=== PATIENT | male | born 1970 | race Caucasian/White ===

== ENCOUNTER 2017-09-11 06:23 | Inpatient (IN) ==
--- OUTSIDE RECORDS SUMMARY | 2017-09-11 06:27 | External Medical Summary | Continuity of Care Document ---
:1970 Author Organization [facility] Allergies Medications Problems Date Dx Coded Attending Type Code Diagnosis Diagnosed By 04/26/2016 HOMERO SCHUSTER Ot M79.661 PAIN IN RIGHT LOWER LEG 04/30/2016 SWEAT BOB, HOMERO L Ot M79.661 PAIN IN RIGHT LOWER LEG 10/12/2016 SWEAT PA, HOMERO L Ot M79.661 PAIN IN RIGHT LOWER LEG 10/30/2016 SWEAT BOB, HOMERO L Ot M79.661 PAIN IN RIGHT LOWER LEG Procedures Results Encounters ACCT Visit Discharge Status Pt. Type Provider Facility Loc./Unit Complaint No. Date/Time [id number] 04/24/2016 04/24/2016 CLS Outpatient Gregg SCHUSTER RAD RIGHT CALF [id number] 10:46:00 23:59:59 [facility] PAIN
[2017-09-11] MEDS ORDERED: SALINE FLUSH 10ml SYRINGE IV PRN ×2 (09:56→19:31)
[2017-09-11 11:43] VITALS: BMI 36.8
[2017-09-11] MEDS ORDERED: MIDAZOLAM 2mg/2ml INJECTION ONE ×2 (12:55→13:32)
[2017-09-11] MEDS ORDERED: Verapamil 5 MG/2 ML VIAL ONE (12:57)
[2017-09-11] MEDS ORDERED: NITROGLYCERIN 50MG INJECTION IV ONE (12:57)
[2017-09-11] MEDS ORDERED: HEPARIN 1,000unit/ml INJECTION 10ml ONE (12:57)
[2017-09-11] MEDS ORDERED: FentaNYL 100 MCG/2 ML INJECTION ONE (12:57)
[2017-09-11] MEDS ORDERED: LIDOCAINE 1% (10mg/ml) 30ml SDV INJ ONE (12:58)
[2017-09-11] MEDS ORDERED: HEPARIN 1,000 UNITS/500 ML PREMIX (*CVL ONLY*) IV ONE (13:00)
[2017-09-11] MEDS ORDERED: 1/2 NS 1,000 ML IV SCH (14:00)
[2017-09-11] MEDS ORDERED: CLOPIDOGREL 75 MG TABLET ONE (14:09)
[2017-09-11] MEDS ORDERED: HEPARIN DRIP 20,000 UNIT/500 ML BAG IV ONE (14:15)
[2017-09-11] MEDS ORDERED: NS 1,000 ML IV SCH ×2 (14:40→19:45)
[2017-09-11] MEDS: HEPARIN DRIP 20,000 UNIT/500 ML BAG IV SCH ×2 (14:40→19:17)
[2017-09-11] MEDS ORDERED: NITROGLYCERIN 0.4 MG SUBLINGUAL TABLET SL PRN ×3 (15:57→19:53)
[2017-09-11] MEDS ORDERED: NITROGLYCERIN 2% OINTMENT 1gm PACKET TP PRN (15:58)
[2017-09-11] MEDS ORDERED: MAG-AL + SIM ORAL LIQUID 30ml PO PRN (16:00)
[2017-09-11] MEDS ORDERED: ACETAMINOPHEN 325 MG TABLET PO PRN (16:05)
[2017-09-11] MEDS ORDERED: HEPARIN - PHARMACY CONSULT MC ONE (19:41)
[2017-09-11] MEDS ORDERED: ASPIRIN 325 MG TABLET PO ONE (19:41)
[2017-09-11] MEDS ORDERED: ONDANSETRON 4 MG/2 ML INJECTION IVP PRN (19:41)
[2017-09-11] MEDS ORDERED: ACETAMINOPHEN 500 MG TABLET PO PRN (19:53)
--- NOTE | 2017-09-11 20:50 | Cardiology History & Physical ---
History of Present Illness HPI: Mr. Valentin is a pleasant 47-year-old male well-known to me. He has history of small vessel coronary artery disease involving diagonal branch dates back to 2006 when he had a heart catheter. He was seen recently in my office twice for severe hypertension. Also had a severe left-sided chest pain started after moving a large refrigerator. Started having severe hypertension as high as 220/110 with some mild headaches. His been very anxious. He is having chest pain daily. Saw him in the office this past EKG showed no acute changes (troponin last wk was normal ) , he was severely hypertensive and having intermittent left-sided chest pain and pressure but pain-free in the office. Did not want him to drive so I drove across a street from my office to the emergency department for treatment of hypertension and work up of his chest pain. I recommended him to be admitted to the hospital and, communicated that with emergency department physician. He refused admission. Apparently he went back to the emergency department the same evening with a having more chest pain and getting scared but then left the hospital ED waiting room on his own before ,being seen by a physician. Severe Chest Pain on Saturday Evening for a couple of hours. He has had some mild chest pain on Saturday morning but none since. His chest pain has been improving with Rest and up to x2 Sublingual Nitroglycerin and Worsened with Walking short distance/any activity . He also had reproducible left sided chest wall tenderness to light touch and arm movement. He has risk factors including hypertension smoking history known atherosclerotic cardiovascular disease with a previous renal artery stent and small vessel CAD. For additional details please refer to the office note and emergency department physician reports. Patient has been treated with amlodipine and labetalol aspirin and sublingual nitroglycerin glycerin when necessary was also given Xanax when necessary which has helped him sleep. He was also noted to have acute kidney injury with a creatinine 1.9 last week seen by nephrology Dr. Maxwell repeat creatinine was down to normal. He ordered a renal artery Doppler and bilateral kidney ultrasound. He cleared him for possible heart catheter now that his creatinine is down. Patient presents for outpatient transradial heart catheterization coronary angiogram and renal arteriogram on 09/11/2017. It showed significant coronary artery disease with a thrombus in the LCx. No angina today or yesterday .EKG without acute changes. Decided to admit him for hydration ,and to load him with Plavix and start intravenous heparin overnight to reduce thrombus burden to allow for safer percutaneous coronary intervention. This should also help us to better protect his kidneys, especially given his recent XAVIER . That is by splitting the contrast load and allowing good IV hydration. Again he is a free from active angina at the time of my heart catheterization. Expected length of stay is greater than 2 nights to inpatient status was requested. Review of Systems All systems PM: 10-point ROS was reviewed, no additional remarkable complaints except - Constitutional Constitutional: Present: fatigue, headache(s) (mild), weakness (generalized). Absent: anorexia, chills, fever(s), night sweats - EENMT Eyes: Absent: diplopia, loss of vision Mouth/Throat: Absent: sore throat - Cardiovascular Cardiovascular: Present: chest pain. Absent: palpitations, syncope, dyspnea on exertion, edema Vascular: Absent: Raynaud's - Respiratory Respiratory: Absent: cough, dyspnea, chest congestion - Gastrointestinal Gastrointestinal: Present: nausea (mild after meals), other (mild heartburn that resolved after Maalox and Tylenol. No associated chest tightness or pressure or dyspnea). Absent: abdominal pain, change in bowel habits, coffee ground emesis, hematemesis, hematochezia, melena - Genitourinary Genitourinary: Absent: dysuria, hematuria - Musculoskeletal Musculoskeletal: Present: as per HPI, neck pain, stiffness - Neurological Neurological: Present: as per HPI, headache(s). Absent: abnormal speech, confusion, dizziness, frequent falls, loss of vision, memory loss - Psychiatric Psychiatric: Present: anxiety - Endocrine Endocrine: Present: flushing (after taking amlodipine twice a day, improved after dose was lowered to 5 mg daily) - Hematologic/Lymphatic Hematologic/Lymphatic: Absent: easy bleeding, easy bruising [facility] Patient Stated Medical History Cerebrovascular Accident Yes: only right side facial droop Dental Problems Yes: broken and missing teeth Angina Yes Coronary Artery Disease Yes Hypertension Yes Myocardial Infarction Yes Other Cardiology Yes: pacemaker 2006 Gastroesophageal Reflux Yes Disease Gastrointestinal Bleeding Yes: bright red blood in stool intermittently Ulcer Yes Hx Renal Disease Yes: CKD STAGE 3 Other Yes: stent in right kidney Other Infectious Yes: staph Surgical History: Permanent pacemaker implantation 2006. coronary angiogram about 2006 done at [place] that showed small vessel disease involving diagonal branch normal LV function. Appendectomy cholecystectomy left knee arthroplasty 3 Family History Updates: Positive for heart disease and stroke - Social History Smoking status: Current every day smoker Substance use type: does not use Alcohol intake frequency: does not drink Household members: spouse Current occupational status: employed Current residence: Apartment/Private Home Medications Home Medications Medication Instructions Recorded Confirmed Type Labetalol HCl 200 mg PO BID #0 09/15/10 09/11/17 History Acetaminophen [Acetaminophen Extra 1,000 mg PO Q6H PRN 09/05/17 09/11/17 History Strength] Multivitamin [Multivitamins] 1 cap PO DAILY 09/05/17 09/10/17 History Aspirin [Aspirin EC] 81 mg PO HS 09/10/17 09/11/17 History ALPRAZolam [Xanax] 1 - 2 tab PO Q6H 09/11/17 09/11/17 History Nitroglycerin [Nitrostat] 0.4 mg SL [id number] PRN 09/11/17 09/11/17 History Allergies Allergy/AdvReac Type Severity Reaction Status Date / Time lisinopril Allergy Severe ANAPHYLACTIC Verified 09/11/17 11:59 SHOCK Exam Vital signs: Temperature 97.7 F 09/11/17 11:35 Pulse Rate 58 L 09/11/17 18:29 Respiratory Rate 16 09/11/17 11:35 Blood Pressure 141/86 H 09/11/17 11:35 Pulse Oximetry 97 09/11/17 11:35 - Constitutional no acute distress, well developed, obese - Routine HEENT Exam Head: Present: normocephalic, atraumatic Eye: Present: EOMI, PERRL ENT: Present: mucous membranes moist - Routine Neck Exam Present: normal carotid upstroke. Absent: JVD, carotid bruit - Routine Respiratory Exam Present: CTA bilaterally - Routine Cardiovascular Exam Present: RRR, no murmur, S4. Absent: JVD - Routine Abdominal Exam Present: soft, normoactive bowel sounds, non distended, non tender. Absent: organomegaly, mass - Routine Extremities Exam Absent: cyanosis, clubbing, edema - Routine Skin Exam Present: intact, dry, warm. Absent: cyanosis, erythema, pallor - Routine Neurological Exam Present: alert, oriented X3, CN II-XII intact, moving all extremities, vision grossly intact, normal speech. Absent: sensory deficit, motor deficit, facial asymmetry - Routine Psychiatric Exam Present: normal thought process, cooperative, anxious Results 09/12/17 06:32 09/12/17 06:32 Cardiac Enzymes 09/11/17 Range/Units 12:26 AST 19 (17-59) U/L Lipids 09/11/17 Range/Units 12:26 Triglycerides 106 (40-160) MG/DL Cholesterol 131 L (132-199) MG/DL HDL Cholesterol 23 L (40-60) MG/DL Cholesterol/HDL Ratio 5.7 H (0-5.0) RATIO CBC 09/11/17 Range/Units 12:26 WBC 10.3 (4.5-11.0) T/MM3 RBC 6.37 H (4.50-5.90) M/MM3 Hgb 17.5 (13.5-17.5) GM/DL Hct 52.1 (41-53) % Plt Count 206 (130-400) T/MM3 Neut # (Auto) 6.6 (1.8-7.7) T/MM3 Lymph # (Auto) 2.5 (1-4.8) T/MM3 Cecil # (Auto) 0.8 (0-0.8) T/MM3 Eos # (Auto) 0.3 (0-0.5) T/MM3 Baso # (Auto) 0.0 (0-0.2) T/MM3 Comprehensive Metabolic Panel 09/11/17 Range/Units 12:26 Sodium 143 (134-144) MEQ/L Potassium 4.1 (3.6-5) MEQ/L Chloride 106 (98-107) MEQ/L Carbon Dioxide 27 (22-30) MEQ/L BUN 21.0 H (9-20) MG/DL Creatinine 1.1 (0.8-1.5) MG/DL Glucose 92 (75-110) MG/DL Calcium 9.2 (8.4-10.2) MG/DL AST 19 (17-59) U/L ALT 45 (21-72) U/L Alkaline Phosphatase 94 (38-126) U/L Total Protein 7.8 (6.3-8.2) G/DL Albumin 4.4 (3.5-5.0) G/DL Intake and Output 09/11/17 09/11/17 09/11/17 06:59 14:59 22:59 Intake Total 961.666 / 961.666 Balance 961.666 / 961.666 Intake: IV 541.666 / 541.666 Heparin Drip 20,000 unit 108.333 / 108.333 In 500 ml @ 1,000 UNIT/HR 25 mls/hr IV .Q20H MALLORY Rx#:[id number] Ns 1,000 ml @ 100 mls/hr 433.333 / 433.333 IV .Q10H MALLORY Rx#: [id number] Oral 420 / 420 Other: Urine Appearance Clear Urine Color Yellow Urine Odor Strong # Voids 1 Weight 113 kg Patient Weight All labs from 09/11/2017 at the time of service reviewed - EKG Interpretation EKG: sinus rhythm, no acute changes Hospital Course This is a general summary of the patient's hospital course. For more details refer to the complete medical record. Time spent with patient: greater than 35 minutes DVT Prophylaxis: Heparin drip GI Prophylaxis: Protonix Assessment and Plan - Assessment and Plan (1) Acute coronary syndrome Status: Acute Three-vessel coronary artery disease with good LV function nondiabetic and 47- year-old . No angina in the past 48 hours . Had refused admission to the hospital for chest pain and hypertension on 3 occasions . Now he is agreeable to stay after the heart catheterization findings and the treatment plan discussed with him and his . Going for multivessel coronary stenting probably staged rather than a CABG especially given his age and the absence of severe disease in the left main and LAD itself, absence of diabetes, and the presence of preserved LV function. Reviewed with Dr. Nadia Dueñas jewel blocker and sawyer. I Decided to admit him for hydration ,and to load him with Plavix and start intravenous heparin overnight to reduce thrombus burden to allow for safer percutaneous coronary intervention. This should also help us to better protect his kidneys, especially given his recent XAVIER . That is by splitting the contrast load and allowing good IV hydration. Restart his usual home meds including beta blockers No ANDREINA inhibitor or ARB due to history of anaphylaxis with a former drug. Start intense statin therapy due to coronary artery disease Check fasting lipid profile and troponin level 1 Obtain an echocardiogram for accurate assessment of LV function and wall motion . Proton pump inhibitor due to heartburn and anticoagulant/and dual antiplatelet therapy started. Expected length of stay is greater than 2 nights to inpatient status was requested. (2) Dyslipidemia (high LDL; low HDL) Status: Acute (3) Essential hypertension Status: Chronic (4) Renal artery stenosis, [id number] Status: Chronic (5) 3-vessel coronary artery disease Problem details: With Good LV function Status: Acute - Assessment and Plan severe 3 V CAD with preserved LV Fx had severe CP came back to ED then he decided to leave. has refused admission from my office and ED ,also Dr Dawkins's notes had a lot of CP Saturday evening and mild CP on saturday none since . EKG w/o acute STT changes or diagnostic Q waves recheck troponin pending. d/t amount of contrast exposure, recent XAVIER and coronary thrombus, and given the abscence of angina today decided to admit inpatient to CCU Rx with IV Heparin and load with PO Plavix. start high intensity statin restart home meds including BB. echocardiogram troponin PCI in am after over night infusion of Heparin and PO Plavix and Statin on board to reduce clot burden and thus lower PCI complication rate. also advised on limited photo lab manager hours here and potential need fro an emergent transfer to [place] , for a 24/7 photo lab manager facility , should his clinical picture changes, and they're in agreement to stay here for PCI planned in am by Dr Taylor. images and acse reviwed and discussed with him for interventional opinion and he recommended multivessel PCI, rather than CABG in this young patient . discussed with pt and and they're in agreement.
[2017-09-11] MEDS ORDERED: ASPIRIN *EC* 81 MG TABLET PO SCH (21:00)
--- NOTE | 2017-09-11 21:28 | Cardiology Progress Note ---
Exam Vital signs: Temperature 97.4 F 09/11/17 20:01 Pulse Rate 56 L 09/11/17 21:00 Respiratory Rate 19 09/11/17 21:00 Blood Pressure 136/69 09/11/17 20:01 Pulse Oximetry 98 09/11/17 21:00 Hospital Course Summary Disclaimer: The visit summary below is not to be considered part of the above Progress Note. Hospital Course: 09/11/17 21:26 procedure report transradial HC severe 3 V CAD good LV Fx no complications d/t occluded LCX will obtain troponin level no CP since Saturday
[2017-09-11] MEDS: ATORVASTATIN 40 MG TABLET PO SCH (22:19)
[2017-09-11] MEDS: AMLODIPINE 5 MG TABLET PO SCH (22:19)
[2017-09-11] MEDS: ALPRAZolam 0.25 MG TABLET PO SCH (22:20)
[2017-09-12] MEDS ORDERED: HEPARIN DRIP 20,000 UNIT/500 ML BAG IV SCH (00:43)
[2017-09-12] MEDS: ALPRAZolam 0.25 MG TABLET PO SCH ×4 (03:50→20:01)
[2017-09-12] MEDS ORDERED: OMEPRAZOLE 20 MG CAPSULE PO SCH (06:30)
[2017-09-12] MEDS: PANTOPRAZOLE 40 MG TABLET PO SCH (06:53)
[2017-09-12] MEDS: LABETALOL 100 MG TABLET PO SCH ×3 (07:26→21:38)
--- NOTE | 2017-09-12 08:00 | Pharmacy Consult ---
Pharmacy Consult-Heparin - Laboratory Information Heparin Plt Count 186 T/MM3 (130-400) 09/12/17 06:32 APTT 62.0 SEC (24-36) H 09/12/17 06:32 - Consult Information HEPARIN CONSULT (Initial): Dx: Chest pain Baseline PTT = 44 Sec. Baseline platelet count = 206 T/mm3. PTT Target Range = 50-75 Will give no Heparin Bolus. Start Heparin Drip at 1,200 units/hr (30ml/hr). Heparin 20,000 units in D5W 500ml. PTT after 7 hours is 62 seconds so we will continue same rate of 30mL/hr. We will order PTT around 1400 today. This a.m. platelet count is 186,000 We will continue to monitor and make adjustments accordingly. Thank you.
[2017-09-12] MEDS: AMLODIPINE 5 MG TABLET PO SCH ×2 (08:11→21:38)
[2017-09-12] MEDS: MULTIVITAMIN PO SCH (08:11)
[2017-09-12] MEDS: CLOPIDOGREL 75 MG TABLET PO SCH (08:12)
[2017-09-12] MEDS ORDERED: HEPARIN 1,000unit/ml INJECTION 10ml ONE (08:24)
[2017-09-12] MEDS ORDERED: LIDOCAINE 1% (10mg/ml) 30ml SDV INJ ONE (08:25)
[2017-09-12] MEDS ORDERED: HEPARIN 1,000 UNITS/500 ML PREMIX (*CVL ONLY*) IV ONE (08:25)
[2017-09-12] MEDS ORDERED: IOHEXOL 350mg/ml 200ml BOTTLE ONE ×2 (08:25→10:51)
[2017-09-12] MEDS ORDERED: ASPIRIN *EC* 81 MG TABLET PO SCH (09:00)
[2017-09-12] MEDS ORDERED: FentaNYL 100 MCG/2 ML INJECTION ONE ×2 (09:32→10:54)
[2017-09-12] MEDS ORDERED: MIDAZOLAM 2mg/2ml INJECTION ONE (09:32)
[2017-09-12] MEDS ORDERED: NITROGLYCERIN 50MG INJECTION IV ONE (09:37)
[2017-09-12] MEDS ORDERED: NS 1,000 ML ONE (10:47)
[2017-09-12] MEDS ORDERED: NS 1,000 ML IV SCH (11:00)
--- NOTE | 2017-09-12 12:11 | Cardiology Report ---
DATE OF PROCEDURE 09/12/2017 REFERRING PHYSICIAN Carlos Dueñas MD PROCEDURE PERFORMED 1. PTCA and stent placement of the proximal and mid circumflex artery. 2. Primary stenting of the first diagonal branch of the LAD. MEDICATIONS GIVEN DURING PROCEDURE Please refer to printout sheet. Conscious sedation for 30 minutes. COMPLICATIONS None DESCRIPTION OF OPERATION The patient was brought to the cardiac catheterization laboratory. Right groin was prepped and draped in usual sterile technique. 1% Xylocaine was used for local anesthesia. A 6-Eritrean inserted in the right femoral artery. A 6-Eritrean JLC guide was inserted in the left main coronary artery. A Runthrough wire was advanced to the circumflex artery. Predilation was performed using 2.5 x 15 mm balloon. Subsequently a 2.75 x 30 mm drug-eluting stent ([place] [place]) was deployed in the proximal and mid circumflex artery and inflated up to 12 atmospheres (up to 2.795 mm). Additional views were obtained and subsequently the wire was advanced to the first diagonal branch of the LAD and 2.5 x 18 mm drug-eluting [place] stent was placed, up to 14 atmospheres (2.8 mm). Subsequently there was thought to be a significant disease in the mid LAD and therefore a wire was advanced to the LAD. However, upon further angiography, the lesion appeared to be less than 50%, therefore no revascularization was thought to be necessary and the wire was taken out. Angiography was performed and Angio-Seal was applied with successful result. RESULTS 1. PTCA and stent placement of the mid circumflex artery was successfully reduced from 99% down to 0% with RASHAWN-2 flow at the beginning and RASHAWN-3 flow at the end. There was some moderate diffuse disease throughout the whole area and that is why a long stent was used. 2. Primary stenting of the first diagonal branch of LAD was successfully reduced from about 80% down to 0%, with RASHAWN-3 flow before and after the procedure. 3. The length of the lesion in the circumflex was approximately 33 mm in length. The lesion of the diagonal was approximately 14 mm. COMMENT After re-wiring the LAD with the wire, the lesion appeared to be much less in the mid LAD which raises the question of intramyocardial bridging. [facility]
[2017-09-12] MEDS ORDERED: MORPHINE SULFATE 4mg INJECTION IVP PRN ×2 (13:18→13:19)
[2017-09-12] MEDS ORDERED: HYDROCODONE/APAP 5mg/325mg TABLET PO PRN (13:21)
[2017-09-12] MEDS ORDERED: PROMETHAZINE 25 MG INJECTION IVP PRN (13:21)
[2017-09-12] MEDS ORDERED: LORazepam 0.5 MG TABLET PO PRN (13:22)
[2017-09-12] MEDS ORDERED: ONDANSETRON 4 MG/2 ML INJECTION IVP PRN (13:23)
[2017-09-12] MEDS ORDERED: METOCLOPRAMIDE 10mg/2ml INJECTION IVP PRN (13:25)
--- NOTE | 2017-09-12 18:57 | Cardiology Progress Note ---
Subjective Interval history: Curt is doing well. He denies any further chest pain .no significant wrist or groin pain. He is seen post PCI to LCx and diagonal branch. He ate lunch no BM yet, normal urine. Appears comfortable , lying in bed at bedside. He did get up to use the bathroom earlier without problems. Telemetry shows sinus rhythm labs are stable Elected for intense lipid-lowering treatment Exam Vital signs: Temperature 97.7 F 09/12/17 15:59 Pulse Rate 56 L 09/12/17 15:00 Respiratory Rate 17 09/12/17 15:00 Blood Pressure 117/73 09/12/17 14:00 Pulse Oximetry 97 09/12/17 15:00 - Constitutional no acute distress - Routine HEENT Exam Head: Present: normocephalic, atraumatic Eye: Present: EOMI ENT: Present: mucous membranes moist - Routine Neck Exam Absent: JVD - Routine Respiratory Exam Present: CTA bilaterally - Routine Cardiovascular Exam Present: RRR Comments: Peripheral pulses are intact including the right radial and right pedal. Digits were pink normal neurovascular exam - Routine Abdominal Exam Present: soft, normoactive bowel sounds - Routine Extremities Exam Absent: cyanosis, clubbing, edema - Routine Skin Exam Present: intact, normal turgor, wounds (normal right wrist and right groin catheter sites without hematoma swelling or bruise no discharge). Absent: cyanosis, erythema, ecchymosis - Routine Neurological Exam Present: alert, oriented X3, CN II-XII intact, moving all extremities, vision grossly intact, hearing grossly intact, normal speech. Absent: sensory deficit , motor deficit, facial asymmetry - Routine Psychiatric Exam Present: normal affect, normal thought process, cooperative Assessment and Plan - Assessment and Plan (1) Non-ST elevation FL (NSTEMI) Current visit: Yes Status: Acute No angina on or since admission. Has been having angina as an outpatient and refused hospital admission. Patient is doing very well status post PCI multivessel, to LCx and diagonal branch. Normal LV function. Wall motion mitral and echo cardiogram due to stunned myocardium Minimal troponin elevation. EKG without acute changes. Counseled in smoking cessation. He says he quit. No side effects from the medications. He is on a good regimen. Appears to be in good spirits. We'll ambulate observe him overnight and hopefully home tomorrow. (2) Essential hypertension Current visit: Yes Status: Acute (3) Dyslipidemia (high LDL; low HDL) Current visit: Yes Status: Acute (4) Renal artery stenosis, [id number] Current visit: Yes Status: Acute Left renal artery stent with only about 30% stenosis and good flow Right renal artery 50% stenosis nonobstructive see report Renal arterial Doppler also reviewed from 2 days ago ordered by Dr. Maxwell [facility] Hospital Course Summary Disclaimer: The visit summary below is not to be considered part of the above Progress Note.
[2017-09-12] MEDS: ATORVASTATIN 40 MG TABLET PO SCH (21:38)
[2017-09-13] MEDS: ALPRAZolam 0.25 MG TABLET PO SCH ×3 (05:21→16:18)
[2017-09-13] MEDS: PANTOPRAZOLE 40 MG TABLET PO SCH (06:34)
[2017-09-13] MEDS ORDERED: ASPIRIN *EC* 81 MG TABLET PO SCH (09:00)
[2017-09-13] MEDS ORDERED: CLOPIDOGREL 75 MG TABLET PO SCH (09:00)
[2017-09-13] MEDS ORDERED: ASPIRIN *EC* 325 MG TABLET PO SCH (09:00)
--- NOTE | 2017-09-13 09:19 | Echocardiogram ---
DATE OF SERVICE 09/12/2017 INDICATION Acute MS. TECHNICAL QUALITY Technically good 2-D, M-mode, Doppler echocardiographic images were submitted for interpretation. FINDINGS 1. CARDIAC CHAMBERS. All cardiac chamber measurements are normal. Aortic root diameter is normal. RV size and contractility appear normal. 2. LEFT VENTRICLE. Analysis reveals wall thickness is normal, measured 8.6 mm in the septal wall, 9.4 mm in the posterior wall. Wall motion analysis shows posterior and lateral wall hypokinesis. LV systolic function appears good. 3. VALVES. Aortic and mitral valve exhibit very minimal sclerosis. Tricuspid valve structure and motion appear normal. Normal valve excursion. Other valves appear to have normal opening. Pacemaker leads are seen in the right heart, appear to be unremarkable. 4. Trace mitral regurgitation. Trace tricuspid regurgitation. Normal flow velocities throughout were measured. 5. No evidence of pericardial effusion, intracardiac masses, thrombi, vegetations or shunts. 5. Central venous pressure is estimated to be low based on full loss of IVC. IMPRESSION 1. Normal cardiac chamber size. 2. Normal LV systolic function, EF of 55-60%. 3. Posterior wall hypokinesis that may represent a stunned myocardium. 4. No significant valvular dysfunction. 5. Preserved diastolic function parameters. 6. Pacemaker leads are seen in the right heart. [facility]
[2017-09-13] MEDS: AMLODIPINE 5 MG TABLET PO SCH (09:23)
[2017-09-13] MEDS: CLOPIDOGREL 75 MG TABLET PO SCH (09:24)
[2017-09-13] MEDS: LABETALOL 100 MG TABLET PO SCH (09:24)
[2017-09-13] MEDS: MULTIVITAMIN PO SCH (09:26)
--- NOTE | 2017-09-13 10:26 | Cardiac Catheterization Report ---
DATE 09/11/2017 PROCEDURES PERFORMED Transradial left heart catheterization. LV gram. Coronary angiogram. Abdominal aortogram.. Bilateral renal arteriogram. Moderate conscious sedation - estimated time 40 minutes. INDICATION A 47-year-old gentleman with acute coronary syndrome. He also had severe intermittent hypertension. He has a personal history of left renal artery stent. The patient has been having chest pain for about 10 days and he has refused hospital admission for chest pain and hypertension. He was counseled on the indication, alternatives, risks and benefits of heart catheterization. He agreed to proceed. NARRATIVE OF PROCEDURE After informed consent was obtained, the patient was brought to the cardiac cath laboratory free from chest pain. He was premedicated with IV Versed and fentanyl. Please refer to nursing notes for exact amount given. Blood pressure , oximetry and telemetry were closely monitored throughout the case. Lidocaine 1% about 2 cc was administered in the right wrist. Accessed the right radial artery using modified Seldinger percutaneous technique. A 5-Icelandic slender sheath was introduced in place. Advanced a Manoj catheter under fluoroscopy guidance and performed the above-mentioned procedures. Catheter then was pulled out and advanced down the descending thoracic aorta. Abdominal aortogram was performed to look at the ostia of the renal arteries. Then, for good visualization, selective bilateral renal arteriogram was performed. Procedure was well tolerated. There was no immediate complication. The patient remained asymptomatic throughout the procedure except for some right wrist pain at the site of the entry. The hand and the digits all appeared good , pink and warm. The patient is currently angina free at the time of the procedure and decision was to hydrate him overnight, load him up with Plavix, maintain him on IV heparin, proceed with TR Band for hemostasis (deployed successfully) and bring him back for transfemoral percutaneous intervention, multivessel, in consultation with Dr. Nadia Dueñas. FINDINGS 1. HEMODYNAMICS: LVEDP was 4-5 mmHg. There was no transvalvular or subvalvular pressure gradient present. 2. LV gram shows preservice LV systolic function. Accurate wall motion analysis was limited due to amount of contrast injected. Right coronary artery is a large dominant vessel, exhibits a proximal 75% stenosis manifested as a shelf-like lesion. RPDA and RPLB branches (the latter being march larger in caliber) appear free from occlusive disease. Left main coronary artery is large and normal. LAD is a large vessel, gives origin to two diagonal branches. LAD exhibits a long tubular lesion at the midsegment. 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 It is estimated about 50%. The diagonal branch is medium in caliber , exhibits about 80-90% stenosis proximally that spares the ostium. The other small diagonal branches exhibit ostial stenosis, specifically the first diagonal branch. It measured about 1 mm in caliber. Similarly, a second small diagonal branch also exhibits some ostial stenosis, estimated about 50%. This one again measures about 1.5 mm in caliber. The third diagonal is the largest - measured about 2.5 mm in caliber and exhibits the above-described 80-90% stenosis. Left circumflex artery is a nondominant vessel and the first injection appears totally occluded with some staining of the dye indicative of thrombus. There is a high obtuse marginal branch that is small in caliber and exhibits some distal diffuse disease. This vessel measures about 1.75 mm in diameter, also exhibits some ostial stenosis estimated at 50%, too small a vessel - not amenable to angioplasty. The totally occluded mid circumflex artery into the obtuse marginal branch on subsequent injection opened up leading to a quite large caliber obtuse marginal branch with a severe occlusion of 95%. Abdominal aortogram shows scattered atherosclerotic plaque, nothing occlusive. There is some bilateral ostial narrowing seen in the renal arteries. Selective renal arteriogram did not show any pressure gradient on either side. The left renal artery exhibits a stent that covers the ostium with mild in-stent restenosis estimated about 30%. The branches of the left renal artery are widely patent. The right renal artery exhibits ostial stenosis, estimated about 50%, again hemodynamically insignificant, based on the lack of pressure gradient on pull back. IMPRESSION 1. Severe three-vessel coronary artery disease as manifested by mid LAD 50% stenosis, diagonal branch 80-90% stenosis, 95% occlusion of the mid left circumflex/obtuse marginal branch with a thrombus (culprit vessel) and 75% proximal RCA stenosis. 2. Preserved LV systolic function. 3. Nonocclusive renal artery stenosis, 30%, inside the left renal artery stent , and about 50% right renal artery, hemodynamically insignificant based on pull- back. DISCUSSION AND PLAN 1. Due to clinical stability of the patient, will proceed with loading him with antiplatelet therapy, overnight IV heparin, starting intensive statin therapy, IV hydration, and proceed with percutaneous coronary intervention in the morning. 2. His renal artery stenosis warrants observation at this time. His blood pressure and renal function already are much improved on medical therapy. 3. The patient was counseled on smoking cessation. 4. Due to coronary thrombus, will obtain a troponin level. MTDD
[2017-09-13 10:29] VITALS: O2SAT 97
[2017-09-13 16:22] VITALS: TEMP 97.8
[2017-09-13 18:43] VITALS: BP 133/63
--- NOTE | 2017-09-13 20:02 | Discharge Instructions ---
Discharge Plan - Med Rec/Dispo Prescriptions: New Atorvastatin [Lipitor] 80 mg PO HS #30 tab Clopidogrel [Plavix] 75 mg PO DAILY #30 tab Continue Acetaminophen [Acetaminophen Extra Strength] 1,000 mg PO Q6H PRN PRN Reason: Pain Multivitamin [Multivitamins] 1 cap PO DAILY Amlodipine [Norvasc] 5 mg PO BID #60 tab Nitroglycerin [Nitrostat] 0.4 mg SL Q5MX3 PRN PRN Reason: Angina Labetalol HCl 200 mg PO BID #0 Aspirin [Aspirin EC] 81 mg PO HS ALPRAZolam [Xanax] 1 - 2 tab PO Q6H - Disposition 01 Discharged Home, Self-Care
[2017-09-13 20:18] VITALS: PULSE 60; RESP 13
== END 2017-09-13 20:19 | disposition home or self-care (01) | DRG 247 ==
LOC: CATH 06:23 → SRG 11:30 → CCU 15:02
PROVIDERS: ADMIT Internal Medicine Cardiovascular Disease; ATTEND Internal Medicine Cardiovascular Disease

== ENCOUNTER 2017-10-01 18:20 | Inpatient (IN) ==
[2017-10-01 17:28] VITALS: BMI 36.2
--- NOTE | 2017-10-01 17:55 | History & Physical Report ---
History of Present Illness Date: 10/01/17 Chief complaint: chest pressure HPI: 47-year-old male with CAD presented to er in [place] after an episode of chest pressure while shoveling sand at work. He had soa and was diaphoretic. He denies nausea but says hat he did not want to eat and that it was lunch time. His pain went from 7/10 to 1/10 with 2 nitro. People at work insisted he go to er. He got 2 more nitro there and has had no more chest pressure. He describes being soa if walking too fast or going up stairs. Mr. Valentin underwent stenting on 09/12/[address] Nadia Dueñas following a NSTEMI. There were plans for more stenting later this month. Dr. Dueñas was notified by [place] er and arranged this admission. Review of Systems - Cardiovascular Cardiovascular: Present: chest pain - Respiratory Respiratory: Present: dyspnea on exertion [facility] Patient Stated Medical History Cerebrovascular Accident Yes: only right side facial droop Dental Problems Yes: broken and missing teeth Angina Yes Coronary Artery Disease Yes Hypertension Yes Myocardial Infarction Yes Other Cardiology Yes: pacemaker 2006 Gastroesophageal Reflux Yes Disease Gastrointestinal Bleeding Yes: bright red blood in stool intermittently Ulcer Yes Hx Renal Disease Yes: CKD STAGE 3 Other Yes: stent in right kidney Other Infectious Yes: [facility] Medical History Non-ST elevation [place] (NSTEMI) (Acute Medical) Essential hypertension (Chronic Medical) Dyslipidemia (high LDL; low HDL) (Acute Medical) Renal artery stenosis, [id number] (Chronic Medical) Acute coronary syndrome (Acute Medical) 3-vessel coronary artery disease (Acute Medical) With Good LV function Chest pain (Inactive Medical) Hypertension, malignant (Inactive Medical) Surgical History: Permanent pacemaker implantation 2006. coronary angiogram about 2006 done at [facility] that showed small vessel disease involving diagonal branch normal LV function. Appendectomy cholecystectomy left knee arthroplasty 3. coronary angiogram with stenting 09/12/17. renal artery stent - maybe in 2005 Family History: heart disease, stroke in both parents. father with diabetes - Social History Smoking status: Current every day smoker Packs per day: 0.5 Time spent discussing smoking cessation with patient: 3 to 10 minutes Substance use type: does not use Alcohol intake frequency: holidays/special occasions only Current occupational status: employed Medications Home Medications Medication Instructions Recorded Confirmed Type Labetalol HCl 200 mg PO BID #0 09/15/10 09/11/17 History Acetaminophen [Acetaminophen Extra 1,000 mg PO Q6H PRN 09/05/17 09/11/17 History Strength] Multivitamin [Multivitamins] 1 cap PO DAILY 09/05/17 09/10/17 History Aspirin [Aspirin EC] 81 mg PO HS 09/10/17 09/11/17 History ALPRAZolam [Xanax] 1 - 2 tab PO Q6H 09/11/17 09/11/17 History Nitroglycerin [Nitrostat] 0.4 mg SL Q5MX3 PRN 09/11/17 09/11/17 History Allergies Allergy/AdvReac Type Severity Reaction Status Date / Time lisinopril Allergy Severe ANAPHYLACTIC Verified 09/11/17 11:59 SHOCK Exam Telemetry Rhythm: Sinus Bradycardia Height/Weight/BMI: Height 5 ft 9 in Weight 111.4 kg Body Mass Index 36.2 - Constitutional Present: well nourished, well developed - Routine HEENT Exam Eye: Present: EOMI ENT: Present: mucous membranes moist. Absent: dentition normal - Routine Neck Exam Present: supple. Absent: JVD - Routine Chest/Breast/Axilla Exam Chest wall: Present: pacemaker. Absent: tenderness - Routine Respiratory Exam Present: CTA bilaterally. Absent: rhonchi, wheezes - Routine Cardiovascular Exam Present: S1, S2, no murmur, bradycardia - Routine Abdominal Exam Present: soft, normoactive bowel sounds, non distended. Absent: tenderness - Routine Skin Exam Present: dry, warm - Routine Neurological Exam Present: alert, oriented X3, CN II-XII intact - Routine Psychiatric Exam Present: normal affect Assessment and Plan (1) Unstable angina Current visit: Yes Status: Acute Assessment and Plan: Impression: unstable angina HTN DLD JOSTIN Plan: Patient is admitted to CCU. Nitro available prn. Will start lovenox at 1mg/kg. Continue aspirin and Plavix. Consult Dr. Dueñas. npo after midnight for possible intervention. Check troponin. Continue labetalol and norvasc. Will continue Lipitor. Patient had lipid panel in late Aug., so will not repeat. Xanax is available prn. Will monitor his renal function. He has a hx of renal artery stenosis s/p stent. Cr was 1.16 in [place]. DVT Prophylaxis: Lovenox Resuscitation Status: Full Code - Time spent with patient Time with patient PN: 50 minutes Hospital Course Summary Disclaimer: The visit summary below is not to be considered part of the above Progress Note. Hospital Course: 10/01/17 18:18 Impression: unstable angina HTN DLD JOSTIN Plan: Patient is admitted to CCU. Nitro available prn. Will start lovenox at 1mg/kg. Continue aspirin and Plavix. Consult Dr. Dueñas. npo after midnight for possible intervention. Check troponin. Continue labetalol and norvasc. Will continue Lipitor. Patient had lipid panel in late Oct., so will not repeat. Xanax is available prn. Will monitor his renal function. He has a hx of renal artery stenosis s/p stent. Cr was 1.16 in [place].
[~2017-10-01 18:20] MED LIST: ACETAMINOPHEN 500 MG TABLET PO PRN; ALPRAZolam 0.25 MG TABLET PO PRN
[2017-10-01] MEDS ORDERED: ONDANSETRON 4 MG/2 ML INJECTION IVP PRN (18:23)
[2017-10-01] MEDS ORDERED: ENOXAPARIN 120 MG/0.8 ML INJECTION SQ SCH (18:30)
--- OUTSIDE RECORDS SUMMARY | 2017-10-01 18:42 | External Medical Summary | Continuity of Care Document ---
:1970 Author Organization [facility] Allergies Medications Problems Date Dx [...] Type Provider Facility Loc./Unit Complaint No. Date/Time [id number] 04/24/2016 04/24/2016 CLS Outpatient Gre[facility] RAD RIGHT CALF [id number] 10:46:00 23:59:59 [facility] PAIN
--- NOTE | 2017-10-01 20:13 | Cardiology Consult Note ---
History of Present Illness Consult reason: chest pain History of present illness: 47 yo wm well known to me with recent limited NSTEMI and JOSÉ MIGUEL to Diag and LCX/OM NL LVFx. he started having exertional CP yesterday while splitting fire wood and again today while shoveling sand at work for about 30 min , chest tightness lasted about 1.5 hrs associated with dyspnea, and feeling flushed but no radiation.He says his pain is much milder than previous angina. partially improved after 2 Sl NTG then completely resolved after 2 SL NTG in ED. no recurrence since. He also received SL Lovenox there at my recommendation. he was scheduled for staged PCI to RCA toward the end of this month. appears comfortable in bed . He says he's been compliant with his meds . He was taking it easy until post procedure wt restriction was lifted. He is down to smoking 8 cigarettes a day. Review of Systems All systems PM: 10-point ROS was reviewed, no additional remarkable complaints except PFSH Patient Stated Medical History Cerebrovascular Accident Yes: only right side facial droop Dental Problems Yes: broken and missing teeth Angina Yes Coronary Artery Disease Yes Hypertension Yes Myocardial Infarction Yes Other Cardiology Yes: pacemaker 2006 Gastroesophageal Reflux Yes Disease Gastrointestinal Bleeding Yes: bright red blood in stool intermittently Ulcer Yes Hx Renal Disease Yes: CKD STAGE 3 Other Yes: stent in right kidney Other Infectious Yes: [facility] Medical History Non-ST elevation [place] (NSTEMI) (Acute Medical) Essential hypertension (Chronic Medical) Dyslipidemia (high LDL; low HDL) (Acute Medical) Renal artery stenosis, [id number] (Chronic Medical) Acute coronary syndrome (Acute Medical) 3-vessel coronary artery disease (Acute Medical) With Good LV function Unstable angina (Acute Medical) Chest pain (Inactive Medical) Hypertension, malignant (Inactive Medical) Surgical History: Permanent pacemaker implantation 2006. coronary angiogram about 2006 done at [place] that showed small vessel disease involving diagonal branch normal LV function. Appendectomy cholecystectomy left knee arthroplasty 3. coronary angiogram with stenting 09/12/17. renal artery stent - maybe in 2005 - Social History Smoking status: Current every day smoker Medications Home Medications Medication Instructions Recorded Confirmed Type Labetalol HCl 200 mg PO BID #0 09/15/10 09/11/17 History Acetaminophen [Acetaminophen Extra 1,000 mg PO Q6H PRN 09/05/17 09/11/17 History Strength] Multivitamin [Multivitamins] 1 cap PO DAILY 09/05/17 09/10/17 History Aspirin [Aspirin EC] 81 mg PO HS 09/10/17 09/11/17 History ALPRAZolam [Xanax] 1 - 2 tab PO Q6H 09/11/17 09/11/17 History Nitroglycerin [Nitrostat] 0.4 mg SL Q5MX3 PRN 09/11/17 09/11/17 History ALPRAZolam [Xanax] 1 - 2 tab PRN 10/01/17 History Allergies Allergy/AdvReac Type Severity Reaction Status Date / Time lisinopril Allergy Severe ANAPHYLACTIC Verified 09/11/17 11:59 SHOCK Exam Vital signs: Temperature 97.9 F 10/01/17 19:00 Pulse Rate 56 L 10/01/17 17:14 - Constitutional no acute distress - Routine HEENT Exam Head: Present: normocephalic, atraumatic Eye: Present: EOMI, PERRL ENT: Present: mucous membranes moist - Routine Neck Exam Present: supple, normal carotid upstroke. Absent: JVD, carotid bruit, lymphadenopathy, thyromegaly - Routine Respiratory Exam Present: CTA bilaterally - Routine Cardiovascular Exam Present: RRR, S4. Absent: murmur, JVD - Routine Abdominal Exam Present: soft, normoactive bowel sounds, non distended, non tender - Routine Extremities Exam Present: no edema, pulses intact, normal capillary refill. Absent: cyanosis, clubbing, edema - Routine Skin Exam Present: intact. Absent: cyanosis, erythema - Routine Neurological Exam Present: alert, oriented X3, CN II-XII intact, moving all extremities, vision grossly intact, hearing grossly intact, normal speech. Absent: motor deficit, hemineglect, facial asymmetry - Routine Psychiatric Exam Present: normal affect, normal thought process, cooperative, good insight, good judgment. Absent: depressed, anxious Results Cardiac Enzymes 10/01/17 Range/Units 19:01 Troponin I < 0.012 (0-0.12) ng/ml Intake and Output 10/01/17 10/01/17 10/01/17 06:59 14:59 22:59 Other: # Voids 1 Weight 111.4 kg Patient Weight 10/02/17 06:59 Weight 111.4 kg troponin cbc and bmp neg in outisde facility trop here pending ekg w/o acute changes - EKG Interpretation EKG: sinus rhythm, normal ST/T Assessment and Plan - Assessment and Plan unstable angina recent NSTEMI w/ JOSÉ MIGUEL Diag and LCX nl LVFx HTN DLDO NORMA with renal stent PPM in place npo for heart cath/stent tomorrow hold off additional Lovenox for the procedure Hospital Course Summary Disclaimer: The visit summary below is not to be considered part of the above Progress Note. Hospital Course: 10/01/17 18:18 Impression: unstable angina HTN DLD JOSTIN Plan: Patient is admitted to CCU. Nitro available prn. Will start lovenox at 1mg/kg. Continue aspirin and Plavix. Consult Dr. Dueñas. npo after midnight for possible intervention. Check troponin. Continue labetalol and norvasc. Will continue Lipitor. Patient had lipid panel in late Aug., so will not repeat. Xanax is available prn. Will monitor his renal function. He has a hx of renal artery stenosis s/p stent. Cr was 1.16 in [place].
[2017-10-01] MEDS ORDERED: NITROGLYCERIN 0.4 MG SUBLINGUAL TABLET SL PRN (20:33)
[2017-10-01] MEDS: ASPIRIN *EC* 81 MG TABLET PO SCH (21:11)
[2017-10-01] MEDS: AMLODIPINE 5 MG TABLET PO SCH (21:11)
[2017-10-01] MEDS: LABETALOL 100 MG TABLET PO SCH (21:12)
[2017-10-01] MEDS: ATORVASTATIN 40 MG TABLET PO SCH (21:12)
[2017-10-02] MEDS: MULTI-VITAMIN PLAIN TABLET PO SCH (08:45)
[2017-10-02] MEDS: CLOPIDOGREL 75 MG TABLET PO SCH (08:45)
[2017-10-02] MEDS: AMLODIPINE 5 MG TABLET PO SCH ×2 (08:45→20:49)
[2017-10-02] MEDS: LABETALOL 100 MG TABLET PO SCH ×2 (08:45→20:49)
--- NOTE | 2017-10-02 09:56 | Progress Note ---
- Date 10/02/17 Subjective: Mr. Valentin is resting comfortably. He denies chest tightness or dyspnea. He ate breakfast. He has not had a stool but says it is not unusual for him to go every 2nd or 3rd day. Patient says he was told cath will be tomorrow. is at bedside. Objective Vital signs: Temperature 97 F 10/01/17 20:00 Pulse Rate 63 10/02/17 05:00 Respiratory Rate 20 10/01/17 22:17 Blood Pressure 119/65 10/02/17 05:00 Pulse Oximetry 94 10/01/17 22:17 Height/Weight/BMI: Height 5 ft 9 in Weight 112.7 kg Body Mass Index 36.2 - Constitutional Present: well nourished, well developed - Routine HEENT Exam Eye: Present: EOMI ENT: Present: mucous membranes moist, dentition normal - Routine Respiratory Exam Present: CTA bilaterally. Absent: wheezes - Routine Cardiovascular Exam Present: RRR. Absent: murmur - Routine Abdominal Exam Present: soft, normoactive bowel sounds, non distended. Absent: tenderness - Routine Extremities Exam Present: normal capillary refill Results - Labs CBC & Chem 7: 10/02/17 04:13 10/02/17 04:13 Assessment and Plan (1) Unstable angina Current visit: Yes Status: Acute Assessment and Plan: Impression: unstable angina HTN DLD JOSTIN renal artery stenosis Plan: Patient is admitted to CCU. Nitro available prn. Lovenox to be hold after this morning's dose d/t cath with planned stent to RCA tomorrow. NS when npo. Continue aspirin and Plavix. Dr. Dueñas following. Continue labetalol and norvasc. Will continue Lipitor. Patient had lipid panel in late Aug. (Chol. 116, LDL 68.4, HDL 20), so will not repeat. Xanax is available prn. Will monitor his renal function. He has a hx of renal artery stenosis s/p stent. Cr was 1.16 in [place] and is 1.1 here. Hospital Course Summary Disclaimer: The visit summary below is not to be considered part of the above Progress Note. Hospital Course: 10/01/17 18:18 Impression: unstable angina HTN DLD JOSTIN Plan: Patient is admitted to CCU. Nitro available prn. Will start lovenox at 1mg/kg. Continue aspirin and Plavix. Consult Dr. Dueñas. npo after midnight for possible intervention. Check troponin. Continue labetalol and norvasc. Will continue Lipitor. Patient had lipid panel in late Oct., so will not repeat. Xanax is available prn. Will monitor his renal function. He has a hx of renal artery stenosis s/p stent. Cr was 1.16 in [place]. 10/02/17 10:04 ovenox to be hold after this morning's dose d/t cath with planned stent to RCA tomorrow. NS when npo. Continue aspirin and Plavix. Dr. Dueñas following. Continue labetalol and norvasc. Will continue Lipitor. Patient had lipid panel in late Aug. (Chol. 116, LDL 68.4, HDL 20), so will not repeat. Xanax is available prn. Will monitor his renal function. He has a hx of renal artery stenosis s/p stent. Cr was 1.16 in [place] and is 1.1 here.
[2017-10-02] MEDS: ENOXAPARIN 120 MG/0.8 ML INJECTION SQ SCH ×2 (10:29→22:53)
--- NOTE | 2017-10-02 19:29 | Cardiology Progress Note ---
Subjective Interval history: Curt had a good day no further angina or dyspnea no complaints. No bleeding problems no fever or chills Telemetry shows sinus bradycardia in the 50s TAYLOR's weight and labs and relevant radiology reports s All reviewed Has questions about returning to work and he says there are no light duties, he is expected to do heavy lifting, so advised 10 days of work during the following Saturday Exam Vital signs: Temperature 97.8 F 10/02/17 16:01 Pulse Rate 57 L 10/02/17 18:30 Respiratory Rate 19 10/02/17 18:30 Blood Pressure 123/64 10/02/17 18:01 Pulse Oximetry 97 10/02/17 18:30 - Constitutional no acute distress - Routine HEENT Exam Head: Present: normocephalic, atraumatic Eye: Present: EOMI ENT: Present: mucous membranes moist - Routine Neck Exam Absent: JVD, carotid bruit - Routine Chest/Breast/Axilla Exam Chest wall: Present: pacemaker (normal scar) - Routine Respiratory Exam Present: CTA bilaterally - Routine Cardiovascular Exam Present: RRR. Absent: murmur, JVD - Routine Abdominal Exam Present: soft, normoactive bowel sounds, non distended, non tender. Absent: organomegaly - Routine Extremities Exam Present: no edema, normal capillary refill. Absent: cyanosis, clubbing, edema - Routine Neurological Exam Present: alert, oriented X3, CN II-XII intact, moving all extremities, vision grossly intact, hearing grossly intact. Absent: motor deficit, hemineglect - Routine Psychiatric Exam Present: normal affect, normal thought process, cooperative Results 10/02/17 04:13 10/02/17 04:13 Cardiac Enzymes 10/01/17 Range/Units 19:01 Troponin I < 0.012 (0-0.12) ng/ml CBC 10/02/17 Range/Units 04:13 WBC 8.5 (4.5-11.0) T/MM3 RBC 5.98 H (4.50-5.90) M/MM3 Hgb 16.5 (13.5-17.5) GM/DL Hct 48.8 (41-53) % Plt Count 193 (130-400) T/MM3 Comprehensive Metabolic Panel 10/02/17 Range/Units 04:13 Sodium 144 (134-144) MEQ/L Potassium 3.6 (3.6-5) MEQ/L Chloride 105 (98-107) MEQ/L Carbon Dioxide 26 (22-30) MEQ/L BUN 15.0 (9-20) MG/DL Creatinine 1.1 (0.8-1.5) MG/DL Glucose 96 (75-110) MG/DL Calcium 9.1 (8.4-10.2) MG/DL Intake and Output 10/02/17 10/02/17 10/02/17 06:59 14:59 22:59 Intake Total 720 / 720 240 / 240 Balance 720 / 720 240 / 240 Intake: Oral 720 / 720 240 / 240 Other: # Voids 4 Weight 112.7 kg Patient Weight 10/03/17 06:59 Weight 112.7 kg Assessment and Plan - Assessment and Plan Unstable angina Coronary artery disease three-vessel LV function is normal, received drug- eluting stents to the diagonal branch and LCx/OM anticipating RCA stenting tomorrow Patient again counseled on risk factor control he has 2 I he developed coronary artery disease and explained to him his multiple risk factors, most importantly smoking cessation . Appears to be compliant with his meds. An uncomplicated PCI tomorrow by Dr. william Dueñas would warrant return to work following Saturday or there about He will follow with me in the office in about 2 weeks Hospital Course Summary Disclaimer: The visit summary below is not to be considered part of the above Progress Note. Hospital Course: 10/01/17 18:18 Impression: unstable angina HTN DLD JOSTIN Plan: Patient is admitted to CCU. Nitro available prn. Will start lovenox at 1mg/kg. Continue aspirin and Plavix. Consult Dr. Dueñas. npo after midnight for possible intervention. Check troponin. Continue labetalol and norvasc. Will continue Lipitor. Patient had lipid panel in late Aug., so will not repeat. Xanax is available prn. Will monitor his renal function. He has a hx of renal artery stenosis s/p stent. Cr was 1.16 in [place]. 10/02/17 10:04 ovenox to be hold after this morning's dose d/t cath with planned stent to RCA tomorrow. NS when npo. Continue aspirin and Plavix. Dr. Dueñas following. Continue labetalol and norvasc. Will continue Lipitor. Patient had lipid panel in late Oct. (Chol. 116, LDL 68.4, HDL 20), so will not repeat. Xanax is available prn. Will monitor his renal function. He has a hx of renal artery stenosis s/p stent. Cr was 1.16 in [place] and is 1.1 here.
[2017-10-02] MEDS: ATORVASTATIN 40 MG TABLET PO SCH (20:49)
[2017-10-02] MEDS: ASPIRIN *EC* 81 MG TABLET PO SCH (20:49)
[2017-10-02] MEDS ORDERED: LORazepam 1 MG TABLET PO PRN (22:14)
[2017-10-02] MEDS: NS 1,000 ML IV SCH (22:56)
[2017-10-03] MEDS ORDERED: FentaNYL 100 MCG/2 ML INJECTION ONE ×2 (06:56→07:51)
[2017-10-03] MEDS ORDERED: MIDAZOLAM 2mg/2ml INJECTION ONE ×3 (06:57→07:52)
[2017-10-03] MEDS ORDERED: LIDOCAINE 1% (10mg/ml) 30ml SDV INJ ONE (06:57)
[2017-10-03] MEDS ORDERED: HEPARIN 1,000unit/ml INJECTION 10ml ONE (06:57)
[2017-10-03] MEDS ORDERED: HEPARIN 1,000 UNITS/500 ML PREMIX (*CVL ONLY*) IV ONE (06:57)
[2017-10-03] MEDS ORDERED: IOHEXOL 350mg/ml 200ml BOTTLE ONE (06:58)
[2017-10-03] MEDS ORDERED: NITROGLYCERIN 50MG INJECTION IV ONE (06:58)
[2017-10-03] MEDS ORDERED: NS 1,000 ML ONE (08:20)
[2017-10-03] MEDS ORDERED: ATROPINE 1 MG/ML INJECTION IVP PRN (08:54)
--- NOTE | 2017-10-03 08:54 | Cardiology Report ---
DATE 10/03/2017 PROCEDURE 1. Primary stenting of the mid right coronary artery. 2. Coronary angiography of the left coronary artery. 3. Conscious sedation for 30 minutes. MEDICATIONS GIVEN DURING THE PROCEDURE Fentanyl 100 mcg intravenously, Versed 4 mg intravenously and heparin 8500 units intravenously. COMPLICATIONS None. DESCRIPTION OF PROCEDURE The patient was brought to the cardiac catheterization laboratory. Right groin was prepped and draped per routine sterile procedure. 1% lidocaine was used for local anesthesia. A 6 Salvadorean sheath was inserted in right femoral artery. A 6 Salvadorean RBU guide was inserted in the right coronary artery and a [email or web address] wire was advanced to the distal vessel. A 3.5 x 15 mm drug-eluting stent ( Resolute _Neon?_) was deployed up to 16 atmospheres and ___? dilatation?_* * was obtained. Subsequently, a 6 Salv[place]orean JL4 diagnostic catheter was utilized and left coronary angiography was performed in several projections. Subsequently, _ injected?_ with ? in right femoral artery and there was noted to be some residual of the Mynx that was deployed before and therefore decided to go with manual pressure at this point. RESULTS 1. Right coronary angiography shows about 75-80% stenosis in the mid right coronary artery which was successfully stented with residual stenosis of 0% with RASHAWN-3 flow before and after procedure. 2. Left coronary angiography showed a widely stent in the first diagonal branch and of the circumflex artery with mild disease in the mid LAD distal to the diagonal branches, approximately 50%, with some possible bridging and mild * *____? disease in the *proximal*?* LAD. SUMMARY 1. Successful primary stenting of the mid right coronary artery utilizing a large drug-eluting stent as noted above. 2. Widely patent stents in the circumflex and diagonal branches. 3. Mild to moderate coronary artery disease in the _proximal LAD and the mid LAD?_ (?-just mid?). 4. Residual Mynx closure device was noted in the right femoral artery that is nonobstructive. [facility]
[2017-10-03] MEDS ORDERED: ACETAMINOPHEN 325 MG TABLET PO PRN (08:56)
[2017-10-03] MEDS ORDERED: MORPHINE SULFATE 4mg INJECTION IVP PRN (08:59)
[2017-10-03] MEDS ORDERED: PROMETHAZINE 25 MG INJECTION IVP PRN (09:00)
[2017-10-03] MEDS ORDERED: NITROGLYCERIN 0.4 MG SUBLINGUAL TABLET SL PRN (09:01)
[2017-10-03] MEDS ORDERED: BISACODYL 10 MG SUPPOSITORY RECTALLY PRN (09:02)
[2017-10-03] MEDS ORDERED: Bisacodyl EC TAB 5 MG TABLET PO PRN (09:02)
[2017-10-03] MEDS ORDERED: MAG-AL + SIM ORAL LIQUID 30ml PO PRN (09:04)
[2017-10-03] MEDS ORDERED: METOCLOPRAMIDE 10mg/2ml INJECTION IVP PRN (09:04)
[2017-10-03] MEDS ORDERED: ONDANSETRON 4 MG/2 ML INJECTION IVP PRN (09:05)
--- NOTE | 2017-10-03 09:26 | Progress Note ---
- Date 10/03/17 Subjective: Mr. Valentin says he is OK. He tolerated cath with stent to RCA. Knows he has to lie flat for a few hours and expects his back to be sore. Says he is ready to eat. No chest pain. No dyspnea. Objective Vital signs: Temperature 97.8 F 10/03/17 07:02 Pulse Rate 50 L 10/03/17 07:33 Respiratory Rate 14 10/03/17 07:02 Blood Pressure 128/66 10/03/17 06:01 Pulse Oximetry 97 10/03/17 06:45 Rhythm: Sinus Bradycardia Height/Weight/BMI: Height 5 ft 9 in Weight 112.7 kg Body Mass Index 36.2 - Constitutional Present: well nourished, well developed - Routine HEENT Exam Eye: Present: EOMI ENT: Present: mucous membranes moist, dentition normal - Routine Respiratory Exam Present: CTA bilaterally. Absent: wheezes - Routine Cardiovascular Exam Present: RRR. Absent: murmur - Routine Abdominal Exam Present: soft, normoactive bowel sounds, non distended. Absent: tenderness - Routine Extremities Exam Present: normal capillary refill Results - Labs CBC & Chem 7: 10/02/17 04:13 10/03/17 04:39 Assessment and Plan (1) Unstable angina Current visit: Yes Status: Acute Assessment and Plan: Impression: unstable angina HTN DLD JOSTIN renal artery stenosis bradycardia, h/o PPM Plan: Patient is admitted to CCU. Nitro available prn. Lovenox on hold after cath. Patient got stent to RCA. NS when npo. Continue aspirin and Plavix. Dr. Dueñas following. Continue labetalol and norvasc. BP 125/69 and doing well. Patient is paced at times. Continuing Lipitor. Patient had lipid panel in late Aug. (Chol. 116, LDL 68.4, HDL 20). Xanax is available prn. Renal function has been stable. He has a hx of renal artery stenosis s/p stent. Cr was 1.16 in [place] and is 1.1 here. He is getting 1L of IVF. Will recheck bmp in am. Hospital Course Summary Disclaimer: The visit summary below is not to be considered part of the above Progress Note. Hospital Course: 10/01/17 18:18 Impression: unstable angina HTN DLD JOSTIN Plan: Patient is admitted to CCU. Nitro available prn. Will start lovenox at 1mg/kg. Continue aspirin and Plavix. Consult Dr. Dueñas. npo after midnight for possible intervention. Check troponin. Continue labetalol and norvasc. Will continue Lipitor. Patient had lipid panel in late Aug., so will not repeat. Xanax is available prn. Will monitor his renal function. He has a hx of renal artery stenosis s/p stent. Cr was 1.16 in [place]. 10/02/17 10:04 ovenox to be hold after this morning's dose d/t cath with planned stent to RCA tomorrow. NS when npo. Continue aspirin and Plavix. Dr. Dueñas following. Continue labetalol and norvasc. Will continue Lipitor. Patient had lipid panel in late Aug. (Chol. 116, LDL 68.4, HDL 20), so will not repeat. Xanax is available prn. Will monitor his renal function. He has a hx of renal artery stenosis s/p stent. Cr was 1.16 in [place] and is 1.1 here. 10/03/17 09:26 Lovenox on hold after cath. Patient got stent to RCA. NS when npo. Continue aspirin and Plavix. Dr. Dueñas following. Continue labetalol and norvasc. BP 125 /69 and doing well. Patient is paced at times. Continuing Lipitor. Patient had lipid panel in late Aug. (Chol. 116, LDL 68.4, HDL 20). Xanax is available prn. Renal function has been stable. He has a hx of renal artery stenosis s/p stent. Cr was 1.16 in [place] and is 1.1 here. He is getting 1L of IVF. Will recheck bmp in am.
[2017-10-03] MEDS: HYDROCODONE/APAP 5mg/325mg TABLET PO PRN ×3 (09:34→21:09)
[2017-10-03] MEDS: CLOPIDOGREL 75 MG TABLET PO SCH (09:35)
[2017-10-03] MEDS: AMLODIPINE 5 MG TABLET PO SCH ×2 (09:35→21:09)
[2017-10-03] MEDS: MULTI-VITAMIN PLAIN TABLET PO SCH (09:36)
[2017-10-03] MEDS: LABETALOL 100 MG TABLET PO SCH ×2 (09:36→21:09)
[2017-10-03] MEDS: MORPHINE SULFATE 4mg INJECTION IVP PRN ×2 (10:37→13:07)
[2017-10-03] MEDS: NS 1,000 ML IV SCH (12:00)
[2017-10-03] MEDS: ASPIRIN *EC* 81 MG TABLET PO SCH (21:09)
[2017-10-03] MEDS: ATORVASTATIN 40 MG TABLET PO SCH (21:11)
[2017-10-04] MEDS: HYDROCODONE/APAP 5mg/325mg TABLET PO PRN ×2 (03:51→09:58)
[2017-10-04 04:48] VITALS: O2SAT 94
[2017-10-04 08:15] VITALS: BP 139/70; PULSE 56; RESP 17; TEMP 98
[2017-10-04] MEDS: LABETALOL 100 MG TABLET PO SCH (08:27)
[2017-10-04] MEDS: CLOPIDOGREL 75 MG TABLET PO SCH (08:27)
[2017-10-04] MEDS: MULTI-VITAMIN PLAIN TABLET PO SCH (08:28)
[2017-10-04] MEDS: AMLODIPINE 5 MG TABLET PO SCH (09:55)
--- NOTE | 2017-10-04 09:57 | Discharge Summary ---
Discharge Information Date of admission: 10/01/17 18:20 Attending Physician: Ignacio Jensen IV, MD Primary care physician: Lorrie Carnes DO Consults: 10/01/17 18:15 Physician Consult [CONS] Routine Consulting Provider: Andrae Dueñas Reason For Exam: unstable angina Ordering Provider has Notified Visual Effects Editor: Yes - Discharge Diagnosis (1) Unstable angina Status: Acute - Laboratory Labs: 10/04/17 05:36 10/04/17 05:36 History of Present Illness HPI: 47-year-old male with CAD presented to er in [place] after an episode of chest pressure while shoveling sand at work. He had soa and was diaphoretic. He denies nausea but says hat he did not want to eat and that it was lunch time. His pain went from 7/10 to 1/10 with 2 nitro. People at work insisted he go to er. He got 2 more nitro there and has had no more chest pressure. He describes being soa if walking too fast or going up stairs. Mr. Valentin underwent stenting on 09/12/[address] Nadia Dueñas following a NSTEMI. There were plans for more stenting later this month. Dr. Dueñas was notified by [facility] and arranged this admission. Objective Vital signs: Temperature 98.0 F 10/04/17 08:00 Pulse Rate 56 L 10/04/17 08:01 Respiratory Rate 17 10/04/17 08:01 Blood Pressure 139/70 10/04/17 08:01 Pulse Oximetry 94 10/04/17 08:01 Rhythm: Sinus Bradycardia Height/Weight/BMI: Height 5 ft 9 in Weight 114 kg Body Mass Index 36.2 - Constitutional Present: well nourished, well developed - Routine HEENT Exam Eye: Present: EOMI ENT: Present: mucous membranes moist, dentition normal - Routine Respiratory Exam Present: CTA bilaterally. Absent: wheezes - Routine Cardiovascular Exam Present: RRR. Absent: murmur - Routine Extremities Exam Present: normal capillary refill Comments: dressing in place at right groin site Hospital Course This is a general summary of the patient's hospital course. For more details refer to the complete medical record. Hospital course: 10/01/17 18:18 Impression: unstable angina HTN DLD JOSTIN Plan: Curt Valentin was admitted to CCU for unstable angina. Dr. Dueñas was consulted. The patient did not have any more chest discomfort during his hospitalization. Troponin was negative. Patient was to have had a stent to his RCA later this month. That was moved up and done by Dr. Nadia Dueñas on 10/03. Patient tolerated the procedure. He has had [place] for groin pain. He has been ambulating in the CCU without chest pain or dyspnea. He remembers the wound care instructions from his previous cath and stent 2 weeks ago. He will leave the dressing in place for [address] during that time. He has an appointment with Dr. Dueñas for 10/08/17. His creatinine was 1.1 before the procedure and is 1.2 today. Discharge Plan - Discharge Disposition Disposition: Discharged Home, Self-Care *Condition: Stable Reason For Visit (Visit label in EMR): unstable angina - Discharge Medications *Discharge Medications: New Acetaminophen [Tylenol] 325 - 650 mg PO Q5H PRN tablet PRN Reason: Pain Hydrocodone/APAP 5/325 [[place] 5/325] 1 tab PO Q5H PRN tablet PRN Reason: Pain Continue Acetaminophen [Acetaminophen Extra Strength] 1,000 mg PO Q6H PRN PRN Reason: Pain Multivitamin [Multivitamins] 1 cap PO DAILY Amlodipine [Norvasc] 5 mg PO BID #60 tab Nitroglycerin [Nitrostat] 0.4 mg SL [id number] PRN PRN Reason: Angina Atorvastatin [Lipitor] 80 mg PO HS #30 tab Clopidogrel [Plavix] 75 mg PO DAILY #30 tab ALPRAZolam [Xanax] 1 - 2 tab PRN PRN Reason: Sleep /Agitation Labetalol HCl 200 mg PO BID #0 Aspirin [Aspirin EC] 81 mg PO HS ALPRAZolam [Xanax] 1 - 2 tab PO Q6H - Discharge Packet/Instructions *Diet: cardiac *Activity: per Dr. Dueñas's instructionis *Pain Management/Treatment: [place] available *Wound Care: per Dr. Dueñas's instructions *Expected Signs/Symptoms: may have pain at groin site *Notify Physician if: chest pain or increasing groin pain *During Business Hours Contact: Dr. Dueñas *After Business Hours Contact: [facility] *Pending Lab/Results: No Pending Lab - Referrals/Follow Up *Referrals/Follow Up: Andrae Dueñas MD [Physician] - Lorrie Carnes DO [Family Provider] - - Patient Handouts - Dismissal Complete Discharge Instructions are:: Complete, Incomplete
--- NOTE | 2017-10-04 10:21 | Work/School Release ---
Work/School Release - Date Date: 10/04/17 - Work Release Excused for:: Curt Valentin has been in the hospital 10/01/17 until 10/04/17. May return to work on:: When cleared by his case reviewer
== END 2017-10-04 11:25 | disposition home or self-care (01) | DRG 246 ==
LOC: CCU
PROVIDERS: ADMIT Hospitalist; ATTEND Hospitalist